=== PATIENT | female | born 1990 | race Caucasian/White ===

== ENCOUNTER 2020-10-17 10:57 | Emergency (ER) | payer MEDICAID ==
[~2020-10-17] VITALS: Ht 167.6 cm; Wt 124.3 kg
[2020-10-17 11:00] VITALS: BP 98/54
--- NOTE | 2020-10-17 11:10 | NUR ---
PT AMB TO BED7
--- NOTE | 2020-10-17 11:15 | NUR ---
29 Y/O F BIB SELF WITH A C/C OF LEFT UPPER REGION PAIN X 1.5 WEEKS. PT VISITED [] AND WAS ADVISED TO GO TO EMERGENCY ROOM. PT STATES TENDER AND SWOLLEN PAIN UPON PALPATION. PER PT, PAIN IS SHARP, 5/10 PAIN THAT BECOMES 10/10 AFTER EATING, RADIATES TO RIGHT SIDE. PT (+) NAUSEA. PT (-) FEVER, CHILLS AND DENIES VOMITING, DIARRHEA, CHEST PAIN, SHORTNESS OF BREATH. LAST BOWEL MOVEMENT 8AM BROWN, SEMI-FORMED. PT GIVEN GI COCKTAIL AND ZOFRAN ODT. BED LOCKED IN LOWEST POSITION. SIDE RAILS X 1. MED HX: HEP C SX: X 2, GALLBLADDER, TONSILLECTOMY ALLERGY: PENICILLIN
[2020-10-17] MEDS ORDERED: ONDANSETRON 4 MG ODT PO ONE (11:25)
[2020-10-17] MEDS ORDERED: DICYCLOMINE HCL LIQUID 20 MG, ALUMINUM HYD/MAG/SIMETHICONE 30 ML, LIDOCAINE VISCOUS 2% ... PO ONE ×3 (11:25)
[2020-10-17] MEDS ORDERED: LIDOCAINE VISCOUS 2% 20 ML UDC ONE (11:35)
[2020-10-17] MEDS ORDERED: DICYCLOMINE HCL LIQUID 10 MG/5 ML UDC ONE (11:36)
[2020-10-17] MEDS ORDERED: ALUMINUM HYD/MAG/SIMETHICONE 30 ML UDC ONE (11:36)
[2020-10-17 11:45] VITALS: BP 98/54
--- NOTE | 2020-10-17 11:45 | NUR ---
Patient discharged with v/s stable. Written and verbal after care instructions given and explained. Patient alert, oriented and verbalized understanding of instructions. Ambulatory with steady gait. All questions addressed prior to discharge. ID band removed. Patient advised to follow up with PMD. Rx of MOTRIN, PRILOSEC given. Patient educated on indication of medication including possible reaction and side effects. Opportunity to ask questions provided and answered.
== END 2020-10-17 11:45 | disposition home or self-care (01) ==
LOC: MED 10:57
DX: R10.12 Left upper quadrant pain (principal); R11.0 Nausea; Z88.0 Allergy status to penicillin; Z90.49 Acquired absence of other specified parts of digestive tract; Z90.89 Acquired absence of other organs; Z98.890 Other specified postprocedural states
CPT/HCPCS: 81002; 81025; 99283; Q0162